=== PATIENT | female | born 1990 | race Caucasian/White ===

== ENCOUNTER 2016-08-01 02:59 | Emergency (ER) | payer MEDICAID ==
[~2016-08-01] VITALS: Ht 160 cm; Wt 119.3 kg
[~2016-08-01 02:59] MED LIST: HYDR-4246 PO; IBUP-1547 PO; PREN1TAB73 PO
[2016-08-01 03:07] VITALS: Ht 160 cm; Wt 119.3 kg
[2016-08-01] MEDS ORDERED: NO ROUTINE MEDS (03:32)
[2016-08-01] MEDS ORDERED: NORMAL SALINE 1,000 ML IV ONE (04:00)
[2016-08-01] MEDS ORDERED: KETOROLAC 30mg/ml INJECTION IV ONE (04:00)
[2016-08-01] MEDS ORDERED: ONDANSETRON 4mg/2ml INJECTION IV ONE (04:00)
[2016-08-01] MEDS ORDERED: HYDROMORPHONE 2mg/ml INJECTION IV ONE ×2 (04:00→06:15)
--- NOTE | 2016-08-01 04:15 | ERPDOC ---
Departure Disposition Decision Date: Aug 01, 2016 Disposition Decision Time: 06:25 Disposition: 01 DISCHARGED HOME, SELF-CARE Impression Impression Impression: Primary Impression: Strep pharyngitis Condition: Improved Seen By: Physician only Referrals: EDEN AGOSTO MD (Family) 1 Week Patient Instructions: Strep Throat (ED) Problems/Meds/Labs Reviewed?: Yes Medications reviewed and manag: Yes Additional Instructions: 1) DRINK PLENTY OF FLUIDS, ESPECIALLY WATER 2) AMOXICILLIN 500 MG BY MOUTH THREE TIMES DAILY FOR 10 DAYS 3) MAY TAKE [place] 5/325 ONE OR TWO BY MOUTH EVERY 6 HOURS NEEDED FOR SEVERE PAIN NOT RELIEVED BY OVER THE COUNTER ANALGESICS DO NOT TAKE TYLENOL OR ACETAMINOPHEN CONTAINING PRODUCTS WITHIN 6 HOURS OF TAKING NORCO 4) FOLLOW UP WITH DR. AGOSTO IN NEXT WEEK FOR RE-EVALUATION 5) RETURN TO ER NEEDED FOR SIGNIFICANT WORSENING OF SYMPTOMS IN SPITE OF MEDICATIONS/ANTIBIOTICS Departure Forms: Return to Work/School Permit Return to Work/School Date: Aug 03, 2016 Restrictions: NO RESTRICTIONS Follow up care ordered?: Yes Mental Status: Alert, Oriented Scripts Hydrocodone/Apap ([place] 5-325 Tablet) 5-325 Tablet 1-2 TAB PO Q6H Y for PAIN, #30 TAB 0 Refills Prov: MATHIEU FLOOD MD 08/01/16 Amoxicillin (Amoxicillin) 500 Mg Tablet 500 MG PO TID, #30 TAB 0 Refills Prov: MATHIEU FLOOD MD 08/01/16 HPI - EENT General General Chief Complaint: Throat Pain/Injury Stated Complaint: SWOLLEN FACE Time Seen by Provider: 03:21 Source: patient HPI - EENT General Initial Comments 25 YO WF who presents to ER for severe sore throat and swollen glands in neck. Patient reports onset of sore throat about two days ago. She had pressure in her ears for about two weeks. Today she is also nauseated. She feels like the lymph nodes in her neck are "very swollen" No vomiting or diarrhea. No abdominal pain. Unknown fever. She is having intermittent chills. Patient reports it really hurts to swallow. Patient reports that pain and swelling seem worse on the right. Pain/Severity Scale: Now & Worst: 7/10 Location: ear (R), ear (L), throat Prearrival Treatment: over the counter meds Associated Symptoms: malaise, poor solids intake, sore throat Allergies: Coded Allergies: No Known Drug Allergies (Verified Adverse Reaction, Unknown, 08/01/16) Past History Past Medical History Pt denies signifigant PMH Hx Echocardiogram: No Neurological: seizures Surgical History Denies Surgeries Family History Family PMH: FOUND: [place] Vaccines Hx Influenza Vaccination: No (fall 2010) Hx Pneumococcal Vaccination: No Hx Tetanus, Diptheria, Pertuss: Yes (2007) Social History Does patient use chewing tobac: No Second Hand Exposure: No Substance Use Type: does not use Alcohol Intake: none Sexuality: male partner Review of Systems Constitutional Constitutional: chills, fatigue, DENIES: fever (? patient uncertain), syncope Eyes General: photophobia, DENIES: erythema, exudate Vision: DENIES: blurring, loss of visual chamberlain ENMT Ears: DENIES: drainage Nose: DENIES: nosebleeds Mouth/Throat: painful swallowing, see HPI, sore throat Cardiovascular Cardiac: DENIES: chest pain Rhythm/Rate: DENIES: irregular beat, palpitations Pulmonary Respiratory: DENIES: cough, dyspnea GI Upper Abdomen: nausea, DENIES: vomiting Lower Abdomen: DENIES: constipation, diarrhea General: DENIES: burning, dysuria, frequency, hematuria, pain, urgency Female: LMP (current) Integumentary Skin: DENIES: rash Neurological General: headache, DENIES: dysarthria, seizures, syncope Physical Exam General Vitals and Pain First Documented Vital Signs Date Time Temp Pulse Resp B/P Pulse Ox O2 Delivery O2 Flow Rate FiO2 08/01/16 03:07 98.5 108 16 120/62 97 Room Air Weight: Kilograms: 119.300 Height (feet): 5 Height (inches): 3.00 Triage Pain Scale: Normal Exams: Head: Normocephalic w/o trauma Eyes: Pupils are PERRLA w/ EOMI, No scleral icterus Chest/Resp: Clear all chamberlain, with good airflow, and symmetry bilaterally CV: Regular rate and rhythm, without murmur or gallop, Pulses 2+ all extremities, capillary refill, <2 seconds all ext., no pedal edema noted Abdomen: Bowel sounds positive, soft, non-tender, non-distended, no hepatosplenomegaly Integumentary: No rashes, hives, or bruising noted Neurologic: Patient is alert, and oriented, cranial nerves, motor/sensory/ cerebellar, exams w/o gross deficits Psychiatric: Patient exhibits, appropriate attention ENMT (brief) ENMT Brief: FOUND: TM clear, TM good light reflex, ear canals clear, mucosa moist, petechiae, pharnyx erythema, tonsillar deviation (bilateral tonsillar enlargement right greater than left) Neck (brief) Neck: FOUND: adenopathy (bilateral anterior cervical LAD. LN tender to palpation.), trachea midline, NOT FOUND: carotid bruits, nuchal rigidity, thyromegaly, tracheal deviation Differential Diagnoses Considering: Abscess (pharyngeal or retro-pharyngeal), Pharyngitis, Sinusitis, URI, Other (mononucleosis) Progress Results/Orders Orders Procedure Category Date Status Time Cbc W/Auto LAB 08/01/16 Complete Diff-Reflex Manual Cmp - Comprehensive LAB 08/01/16 Complete Metabolic Monotest LAB 08/01/16 Complete 03:56 Strep A Antigen Screen LAB 08/01/16 Complete 03:56 Iv Lock (Ed Only) EDM 08/01/16 Transmitted 03:55 LAB 08/01/16 Complete Qualitative, Serum 03:57 Normal Saline (Normal PHA 08/01/16 Complete Saline Iv) 04:00 Ondansetron Inj PHA 08/01/16 Complete (Zofran) 04:00 Ketorolac (Toradol) PHA 08/01/16 Complete 04:00 Hydromorphone PHA 08/01/16 Complete (Dilaudid) 04:00 Ct Neck W/Contrast CT 08/01/16 Logged 03:59 UA, LAB 08/01/16 Complete Dip&Micro(Complete) & 04:47 Iohexol (Omnipaque) PHA 08/01/16 Complete 05:27 Normal Saline (Ns) PHA 08/01/16 Complete 05:27 Saline Flush (Iv PHA 08/01/16 Complete Flush) 05:27 Iohexol (Omnipaque) PHA 08/01/16 Complete 05:32 Ceftriaxone I.V. (Er PHA 08/01/16 In Process Use Only) (Rocephin 05:45 Hydromorphone PHA 08/01/16 Complete (Dilaudid) 06:15 Lab Results Laboratory Tests Test 08/01/16 04:47 08/01/16 04:48 08/01/16 05:10 Urine Collection Type Cleancatch-midstream Urine Color Red Urine Turbidity Sl cloudy Urine pH 5.5 Urine Specific [place] 1.015 Urine Protein 1+ Urine Glucose (UA) Negative Urine Ketones Negative Urine Blood 3+ Urine Nitrite Negative Urine Bilirubin Negative Urine Urobilinogen 0.2EU/DL Urine Leukocyte Esterase Trace Urine RBC Tntc/HPF Urine WBC 0-1/HPF Urine Bacteria None seen Urine Culture Indicated Cult not indicated White Blood Count 15.6T/MM3 Red Blood Count 4.29M/MM3 Hemoglobin 11.5GM/DL Hematocrit 35.4% Mean Corpuscular Volume 82.5UM3 Mean Corpuscular Hemoglobin 26.8UUG Mean Corpuscular Hemoglobin Concent 32.5GM/DL RDW Standard Deviation 42.5FL Platelet Count 280T/MM3 Mean Platelet Volume 10.2UM3 Immature Granulocyte % (Auto) 0.3% Neutrophils (%) (Auto) 79.1% Lymphocytes (%) (Auto) 14.6% Monocytes (%) (Auto) 5.5% Eosinophils (%) (Auto) 0.3% Basophils (%) (Auto) 0.2% Absolute Immature Granulocyte (auto 0.04T/MM3 Absolute Neutrophils (auto) 12.4T/MM3 Absolute Lymphocytes (auto) 2.3T/MM3 Absolute Monocytes (auto) 0.9T/MM3 Absolute Eosinophils (auto) 0.0T/MM3 Absolute Basophils (auto) 0.0T/MM3 Turbidity < 20 Sodium Level 146MEQ/L Potassium Level 3.7MEQ/L Chloride Level 107MEQ/L Carbon Dioxide Level 22MEQ/L Anion Gap 17MEQ/L Blood Urea Nitrogen 9.0MG/DL Creatinine 0.6MG/DL Glomerular Filtration Rate Calc 124 BUN/Creatinine Ratio 15RATIO Glucose Level 115MG/DL Calculated Osmolality 281MOSM/KG Calcium Level 9.2MG/DL Total Bilirubin 0.40MG/DL Icterus Index < 2 Aspartate Amino Transf (AST/SGOT) 16U/L Alanine Aminotransferase (ALT/SGPT) 28U/L Alkaline Phosphatase 88U/L Total Protein 7.4G/DL Albumin 3.8G/DL Globulin 3.6G/DL Albumin/Globulin Ratio 1.1RATIO Human Chorionic Gonadotropin, Qual Negative Chemistry Specimen Hemolysis < 15 Monoscreen Negative Group A Streptococcus Screen Positive Medications Current ED Medications Sodium Chloride (Normal Saline IV) 1,000 ml @ 1,000 mls/hr Q1H ONCE IV Last administered on 08/01/16 04:38; Start 08/01/16 at 04:00; Stop 08/01/16 at 04:59 ; Status DC Ondansetron HCl (Zofran) 4 mg O ONCE IV Last administered on 08/01/16 04:40; Start 08/01/16 at 04:00; Stop 08/01/16 at 04:01; Status DC Ketorolac Tromethamine (Toradol) 30 mg O ONCE IV Last administered on 04:42; Start 08/01/16 at 04:00; Stop 08/01/16 at 04:01; Status DC Hydromorphone HCl (Dilaudid) 0.5 mg O ONCE IV Last administered on 08/01/16 04:45; Start 08/01/16 at 04:00; Stop 08/01/16 at 04:01; Status DC Iohexol 1 bottle 1 bottle STK-MED ONCE .ROUTE ; Start 08/01/16 at 05:27; Stop at 05:28; Status DC Sodium Chloride (NS) 100 ml @ As Directed STK-MED ONCE .ROUTE ; Start 08/01/16 at 05:27; Stop 08/01/16 at 05:28; Status DC Sodium Chloride (Iv Flush) 10 ml STK-MED ONCE .ROUTE ; Start 08/01/16 at 05:27; Stop 08/01/16 at 05:28; Status DC Iohexol 1 bottle 1 bottle STK-MED ONCE .ROUTE ; Start 08/01/16 at 05:32; Stop at 05:33; Status DC Ceftriaxone Sodium/Sodium Chloride (Rocephin/NS) 100 ml @ 100 mls/hr O ONCE IV Last administered on 08/01/16 06:12; Start 08/01/16 at 05:45; Stop at 06:44 Hydromorphone HCl (Dilaudid) 0.5 mg O ONCE IV Last administered on 08/01/16 06:13; Start 08/01/16 at 06:15; Stop 08/01/16 at 06:16; Status DC Progress Progress 0520: Patient + for strep. Feeling better after IV medications and IV fluids. Pain decreased to 3-4/10 from 7/10 0550: Discussed lab results with patient and significant other. Awaiting CT scan results. Patient reports pain is going back up and is now 6-7/10. Additional dose of Dilaudid ordered. MATHIEU FLOOD MD Aug 01, 2016 04:15
--- NOTE | 2016-08-01 04:20 | NUR ---
BATHROOM PT AMBULATORY TO BATHROOM TO VOID URINE SPECIMAN OBTAINED FOR LAB
--- NOTE | 2016-08-01 04:32 | NUR ---
IVL IVL STARTED IN THE RIGHT HAND WITH #20GA, FIRST ATTEMPT BLOOD OBTAINED FOR LAB PT [facility] WE[facility]
--- NOTE | 2016-08-01 04:38 | NUR ---
IV FLUID #1 IV 1000CC NS STARTED AT 999CC/HR IV SITE WITHOUT REDNESS OR SWELLING
--- NOTE | 2016-08-01 04:40 | NUR ---
ZOFRAN IV ZOFRAN GIVEN FOR NAUSEA
--- NOTE | 2016-08-01 04:42 | NUR ---
TORADOL IV TORADOL GIVEN FOR THROAT PAIN PT CALM AND TALKING WITH STAFF ADULT MALE AT [facility]
--- NOTE | 2016-08-01 04:45 | NUR ---
DILAUDID IV DILAUDID GIVEN FOR PAIN
--- NOTE | 2016-08-01 04:50 | NUR ---
STATUS PT RELAXED AND REPORTS SHE IS STARTING TO FEEL BETTER
--- NOTE | 2016-08-01 04:53 | NUR ---
SWAB THROAT SWAB OBTAINED PT MAGGI WELL LIGHTS DIMMED FOR PT TO REST DECLINED OFFERED BLANKET FOR NOW
[2016-08-01 05:04] LABS: BLOOD, URINE 3+ (NEGATIVE); COLOR,URINE RED (YELLOW); LEUKOCYTE ESTERASE ,URINE TRACE (NEGATIVE); NITRITE,URINE NEGATIVE (NEGATIVE); UROBILINOGEN,URINE 0.2 EU/DL (NORMAL)
[2016-08-01 05:08] LABS: BASOPHILS % (AUTO) 0.2 % (0-2); EOSINOPHILS % (AUTO) 0.3 % (0-4); HCT - HEMATOCRIT 35.4 % (36-46); HGB - HEMOGLOBIN 11.5 GM/DL (12-16); IMMATURE GRANULOCYTE # (AUTO) 0.04 T/MM3 (0.00-0.03); IMMATURE GRANULOCYTE % (AUTO) 0.3 % (0.0-0.5); LYMPHOCYTES # (AUTO) 2.3 T/MM3 (1-4.8); LYMPHOCYTES % (AUTO) 14.6 % (23-45); MEAN CORPUSCULAR HGB 26.8 UUG (26-34); MEAN CORPUSCULAR HGB CONC(MCHC 32.5 GM/DL (31-37); MEAN CORPUSCULAR VOLUME 82.5 UM3 (80-100); MEAN PLATELET VOLUME 10.2 UM3 (9.4-12.4); MONOCYTES # (AUTO) 0.9 T/MM3 (0-0.8); MONOCYTES % (AUTO) 5.5 % (0-9.0); NEUTROPHILS #(AUTO)-ABSOLUTE 12.4 T/MM3 (1.8-7.7); NEUTROPHILS % (AUTO) 79.1 % (33-66); RED BLOOD COUNT 4.29 M/MM3 (4.00-5.20); WBC - WHITE BLOOD COUNT 15.6 T/MM3 (4.5-11.0)
[2016-08-01 05:10] LABS: ALBUMIN 3.8 G/DL (3.5-5.0); ALBUMIN/GLOBULIN RATIO 1.1 RATIO (1.1-2.2); ALKALINE PHOSPHATASE 88 U/L (38-126); ALT (SGPT) 28 U/L (9-52); ANION GAP 17 MEQ/L (5-15); AST (SGOT) 16 U/L (14-36); BUN/CREATININE RATIO 15 RATIO (6-26); CALCIUM 9.2 MG/DL (8.4-10.2); CHLORIDE 107 MEQ/L (98-107); CO2 - CARBON DIOXIDE 22 MEQ/L (22-30); CREATININE 0.6 MG/DL (0.7-1.2); GLOMERULAR FILTRATION RATE 124; GLUCOSE 115 MG/DL (65-110); POTASSIUM 3.7 MEQ/L (3.6-5); SODIUM 146 MEQ/L (134-144); TOTAL PROTEIN 7.4 G/DL (6.3-8.2)
--- NOTE | 2016-08-01 05:14 | NUR ---
REST PT RESTING QUIETLY WITH EYES CLOSED
[2016-08-01 05:18] LABS: MONOTEST NEGATIVE (NEGATIVE)
[2016-08-01 05:19] LABS: BACTERIA,URINE NONE SEEN (NEGATIVE); RBC,URINE TNTC /HPF (0-3); WBC,URINE 0-1 /HPF (0-5)
[2016-08-01] MEDS ORDERED: NORMAL SALINE 100 ML ONE (05:27)
[2016-08-01] MEDS ORDERED: SALINE FLUSH 10ml SYRINGE ONE (05:27)
[2016-08-01] MEDS ORDERED: IOHEXOL 300 MG/ML 100ml INJECTION ONE (05:27)
[2016-08-01] MEDS ORDERED: IOHEXOL 300 MG/ML 75ml INJECTION ONE (05:32)
--- NOTE | 2016-08-01 05:35 | NUR ---
CT PT TAKEN TO CT PER W/C
[2016-08-01] MEDS ORDERED: CEFTRIAXONE I.V. (ER USE ONLY) 1 G in NORMAL SALINE 100 ML IV ONE (05:45)
--- NOTE | 2016-08-01 05:50 | NUR ---
ROOM PT RETURNED TO ROOM 5 PER W/C FROM CT
--- NOTE | 2016-08-01 06:03 | NUR ---
IV FLUID #1 IV NS INFUSED
--- NOTE | 2016-08-01 06:14 | NUR ---
update pt resting, iv meds given, spouse at bedside, er dr in to see the pt, waiting on CT results currently.
[2016-08-01] MEDS ORDERED: AMOX500T2 PO (06:15)
[2016-08-01] MEDS ORDERED: HYDR-3989 PO (06:15)
[2016-08-01 06:30] VITALS: BP 121/63; PULSE 76; RESP 13; TEMP 98.5; O2SAT 98
--- NOTE | 2016-08-01 16:50 | DI ---
Indication: ITS.REASON: THROAT SWELLING, CERVICAL LN SWOLLEN, SEVERE SORE THROAT PROCEDURE: CT NECK W/CONTRAST: Encounter: Initial Comparison: None Technique: Axial CT images were performed through the neck with intravenous contrast. Coronal and sagittal two-dimensional reformats Automated Exposure Control and Iterative Reconstruction dose reducing techniques were utilized. Contrast: Omnipaque 300 75 mL Findings: The lung apices are clear. Thyroid gland is normal. No mucosal based masses. There is some presumably reactive adenopathy and cervical levels two and three bilaterally. No rim-enhancing abscess. Mild enlargement of the palatine tonsils could represent a tonsillitis. The salivary glands are normal. Skull base appears normal. There is sinus disease in the sphenoid sinuses and right maxillary sinus. Impression: Possible tonsillitis with presumably reactive adenopathy in the neck. No drainable abscess. There is a preliminary report by virtual radiologic. .
== END 2016-08-01 06:30 | disposition home or self-care (01) ==
LOC: ED 02:59
DX: J02.0 Streptococcal pharyngitis (principal)
CPT/HCPCS: 36415; 70491; 80053; 81001; 84703; 85025; 86308; 87430; 96361; 96365; 96375; 96376; 99284; J0696; J1170; J1885; J2405; J7030; J7050; Q9967